=== PATIENT | female | born 1970 | race African-American/Black ===

== ENCOUNTER 2016-05-05 10:42 | Emergency (ER) | payer BC ==
--- NOTE | ~2016-05-05 | EKG ---
PATIENT: HELGA FUENTES UNIT #: [id number] Ventricular Rate: 90 BPM Atrial Rate: 90 BPM P-R Interval: 146 ms QRS Duration: 78 ms Q-T Interval: 360 ms QTC Calculation(Bezet): 440 ms P [place]: 51 degrees Calculated R [place]: 62 degrees Calculated T [place]: 19 degrees Diagnosis Line: Normal sinus rhythm Diagnosis Line: Normal ECG Diagnosis Line: When compared with ECG of 11-MAY-2015 13:39, Diagnosis Line: Nonspecific T wave abnormality now evident in Diagnosis Line: Anterior leads Diagnosis Line: Confirmed by MARCIN ANDRES MD ([id number]) on 05/06/2016 Diagnosis Line: 9:35:15 AM INTERPRETING MD: MCKENNA MELTON
--- NOTE | ~2016-05-05 | CR72 ---
[facility] A Service of [facility] & [facility] RADIOLOGY TEXT RESULTS PATIENT: HELGA FUENTES LOCATION: [facility] : 72 UNIT #: [id number] AGE: [address]: Michael Sher MD SEX: F ORDER DR: [id number] [facility] [address] [place], [place] [address] [id number] MR#: [id number] Acc #: [id number] NAME: HELGA FUENTES : 1970 SEX: F STUDY DATE/TIME: 05/05/2016 10:38 UNIT: [facility] ROOM: STUDY DESCRIPTION: CR Chest Single View Portable Attending Physician: Michael Sher M.D. Ordering Physician: Michael Sher M.D. Primary Care Physician: Mihaela Wu A.P.R.N. MEDICAL IMAGING REPORT This report is preliminary unless electronic signature is present EXAM Portable chest HISTORY Left-sided chest pain beginning yesterday. TECHNIQUE A single view of the chest was obtained and compared with 12/11/2015. FINDINGS Cardiomegaly is unchanged. The lungs are clear and the vascular pattern is normal. No pleural fluid is seen. A tortuous aorta is again noted. IMPRESSION Cardiomegaly with a tortuous aorta. No active disease. No change. Dictated by... Ajit Johns M.D. THIS IS AN ELECTRONICALLY VERIFIED REPORT Ajit Johns M.D. at 05/05/2016 3:44 PM CHIVO/destini TD: 05/05/2016 12:08 JOB #: [id number] MEDICAL IMAGING REPORT Page 1 of 1 COPY
[~2016-05-05 10:42] MED LIST: ADVAIR 2501 DISK W/D PO; ALBUTEROL17 G1 IH; ALBUTEROL17 GM INH; ALLEGRA60 M1 PO; ASPIRIN PO; ASPIRINEC PO; BUSPAR5 MG PO; COMBIVENT INH14.7 GM INH; DOXYCYCLINE150 MG PO; DUONEB 2.5-0.5 M3 ML NEB; FAMOTIDINE PO; FLAGYL PO; FLOVENT HFA12 GM INH; HUMIBID L.1 TAB.SR . PO; IBUPROFEN PO; LEVAQUIN PO; LEXAPRO PO; LORTAB 5/500 TA1 TA1 PO; MEDROL DOSEPAK4 MG PO; NICOTINE PATCH TD; NORVASC PO; PREDNISONE PO; PREDNISONE10 MG PO; PROVENTIL0.83 MG/ML INH; ROBITUSSIN A-C S5 ML PO; ROBITUSSIN ALL118 ML PO; SINGULAIR PO; SYMBICORT INH; ZITHROMAX1 G/PKT PO
[2016-05-05 11:01] LABS: POC - CKMB <1.0 ng/mL (0.0-7.9); POC - TROPONIN <0.05 ng/mL (<=0.05)
[2016-05-05 11:17] LABS: BASOPHIL% 0.5 % (0-2.5); EOSINOPHIL# 0.2 X10e3 (0-0.7); EOSINOPHIL% 2.4 % (0.0-7.0); HEMATOCRIT 42.7 % (35.0-45.0); HEMOGLOBIN 13.5 gm/dL (12.0-16.0); LYMPHOCYTE# 1.5 X10e3 (1.0-3.5); LYMPHOCYTE% 23.2 % (17.0-45.0); MEAN CELL VOLUME 85.2 FL (83-96); MEAN CORPUSCULAR HEMOGLOBIN 26.9 PG (28-34); MEAN CORPUSCULAR HGB CONC 31.6 g/dL (30-36); MEAN PLATELET VOLUME 9.5 FL (6.5-11.5); MONOCYTE# 0.5 X10e3 (0-1.0); MONOCYTE% 8.5 % (3.0-12.0); NEUTROPHIL# 4.2 X10e3 (1.5-7.1); NEUTROPHIL% 65.4 % (40-75); PLATELET COUNT 299 X10e3 (140-420); RED BLOOD COUNT 5.02 X10e (3.90-5.30); RED CELL DISTRIBUTION WIDTH 14.8 % (11.0-15.5); WHITE BLOOD COUNT 6.4 X10e3 (4.0-10.5)
[2016-05-05 11:20] LABS: DIFF IND NO
[2016-05-05 11:56] LABS: BILIRUBIN, DIRECT 0.1 mg/dL (0.0-0.2); BILIRUBIN,INDIRECT 0.4 mg/dL (0.0-0.9); BILIRUBIN,TOTAL 0.5 mg/dL (0.2-2.0); BUN/CREATININE RATIO 18.33; CALCIUM SERUM 9.3 mg/dL (8.4-10.2); CREATININE SERUM 0.6 mg/dL (0.6-1.4); GLOM FILT RATE Estimated 128.5 mL/min (>60); POTASSIUM 3.6 mmol/L (3.5-5.1); PROTEIN TOTAL SERUM 7.1 g/dL (6.0-8.3)
[2016-05-05 12:21] LABS: POC - CKMB <1.0 ng/mL (0.0-7.9); POC - TROPONIN <0.05 ng/mL (<=0.05)
== END 2016-05-05 12:58 | disposition home or self-care (01) ==
LOC: CED 10:42
PROVIDERS: Emergency Medicine
DX: R09.1 Pleurisy (principal); J44.9 Chronic obstructive pulmonary disease, unspecified; F41.9 Anxiety disorder, unspecified; F32.9 Major depressive disorder, single episode, unspecified; Z98.51 Tubal ligation status; Z88.0 Allergy status to penicillin
CPT/HCPCS: 36415; 71010; 80048; 80076; 82553; 84484; 85025; 85379; 93005; 96374; 96375; 99284; J2270; J2405

== ENCOUNTER 2016-06-18 17:55 | Emergency (ER) | payer BC ==
[2016-06-18 18:18] LABS: URINE SOURCE CLEAN CATCH
[2016-06-18 18:25] LABS: URINE APPEARANCE TURBID; URINE BILIRUBIN NEG (NEG); URINE BLOOD NEG (NEG); URINE COLOR YELLOW; URINE GLUCOSE NEG (NEG); URINE KETONE TRACE (NEG); URINE LEUKOCYTE ESTERASE NEG (NEG); URINE NITRATE NEG (NEG); URINE PH 5.5 (5-8); URINE PROTEIN NEG (NEG); URINE SPECIFIC GRAVITY 1.033 (1.003-1.035)
[2016-06-18 18:29] LABS: CULTURE INDICATED? NO
== END 2016-06-18 18:59 | disposition home or self-care (01) ==
LOC: CFTX 17:55
PROVIDERS: Nurse Practitioner Family
DX: S39.012A Strain of muscle, fascia and tendon of lower back, initial encounter (principal); I10 Essential (primary) hypertension; J44.9 Chronic obstructive pulmonary disease, unspecified; Z88.0 Allergy status to penicillin; Z87.891 Personal history of nicotine dependence; X58.XXXA Exposure to other specified factors, initial encounter; Y92.89 Other specified places as the place of occurrence of the external cause
CPT/HCPCS: 81003; 84703; 96372; 99283; J1885

== ENCOUNTER 2016-10-24 10:55 | Emergency (ER) | payer BC ==
[~2016-10-24] VITALS: Ht 152.4 cm; Wt 117.9 kg
--- NOTE | ~2016-10-24 | US98 ---
[facility] A Service of [facility] & [facility] RADIOLOGY TEXT RESULTS PATIENT: HELGA FUENTES LOCATION: [facility] : 72 UNIT #: [id number] AGE: [address]: Denia Levy MD SEX: F ORDER DR: [id number] [facility] [address] [place], [place] [address] [id number] MR#: [id number] Acc #: [id number] NAME: HELGA FUENTES : 1970 SEX: F STUDY DATE/TIME: 10/24/2016 15:51 UNIT: [facility] ROOM: STUDY DESCRIPTION: US Pelvic Non-OB Complete Attending Physician: Denia Levy M.D. Ordering Physician: Denia Levy M.D. Primary Care Physician: Corbin VenegasPJaileneRPrashant MEDICAL IMAGING REPORT This report is preliminary unless electronic signature is present EXAM Pelvis ultrasound HISTORY Left-sided pelvic pain for a week. FINDINGS Transabdominal followed by transvaginal imaging was performed. The uterus is about 15.6 x 6.8 x 6.7 cm. It seems to contain multiple fibroids including one that measures 4.6 cm in diameter. There is another one that is 18.0 mm in diameter. On transvaginal images there are Nabothian cysts visible in the cervix. The left ovary is visualized and it has normal flow. There is a nearly isoechoic 16.0 mm lesion within it. It is well circumscribed. It is probably a complex cyst. The right ovary cannot be seen. The endometrial tissue is normal. IMPRESSION 1. The right ovary is not visualized. 2. There is an isoechoic well circumscribed lesion in the left ovary most likely representing a complex cyst. It measures 16.0 mm in diameter. 3. Otherwise the left ovary is normal. 4. The uterus is enlarged and appears to contain multiple fibroids. Dictated by... Daquan Goldman M.D. THIS IS AN ELECTRONICALLY VERIFIED REPORT Daquan Goldman M.D. at 10/25/2016 1:30 PM BECKIE/maddy TD: 10/25/2016 12:03 [facility] A Service of [facility] RADIOLOGY TEXT RESULTS PATIENT: HELGA FUENTES LOCATION: [facility] #: [id number] : 72 UNIT #: [id number] AGE: [address]: Denia Levy MD SEX: F ORDER DR: JOB #: [id number] MEDICAL IMAGING REPORT Page 1 of 1 COPY
[2016-10-24 12:15] LABS: BASOPHIL# 0.1 X10e3 (0-0.3); BASOPHIL% 0.7 % (0-2.5); EOSINOPHIL# 0.2 X10e3 (0-0.7); EOSINOPHIL% 2.4 % (0.0-7.0); HEMATOCRIT 42.6 % (35.0-45.0); HEMOGLOBIN 14.1 gm/dL (12.0-16.0); LYMPHOCYTE# 1.8 X10e3 (1.0-3.5); LYMPHOCYTE% 21.4 % (17.0-45.0); MEAN CELL VOLUME 82.7 FL (83-96); MEAN CORPUSCULAR HEMOGLOBIN 27.4 PG (28-34); MEAN CORPUSCULAR HGB CONC 33.2 g/dL (30-36); MEAN PLATELET VOLUME 8.3 FL (6.5-11.5); MONOCYTE# 0.5 X10e3 (0-1.0); MONOCYTE% 6.3 % (3.0-12.0); NEUTROPHIL# 5.7 X10e3 (1.5-7.1); NEUTROPHIL% 69.2 % (40-75); PLATELET COUNT 319 X10e3 (140-420); RED BLOOD COUNT 5.16 X10e (3.90-5.30); RED CELL DISTRIBUTION WIDTH 14.9 % (11.0-15.5); WHITE BLOOD COUNT 8.2 X10e3 (4.0-10.5)
[2016-10-24 12:19] LABS: DIFF IND NO
[2016-10-24 12:41] LABS: ALBUMIN SERUM 4.2 g/dL (3.5-5.0); BILIRUBIN, DIRECT 0.1 mg/dL (0.0-0.2); BILIRUBIN,INDIRECT 0.7 mg/dL (0.0-0.9); BILIRUBIN,TOTAL 0.8 mg/dL (0.2-2.0); BUN/CREATININE RATIO 17.14; CALCIUM SERUM 9.1 mg/dL (8.4-10.2); CREATININE SERUM 0.7 mg/dL (0.6-1.4); GLOM FILT RATE Estimated 121.3 mL/min (>60); POTASSIUM 3.7 mmol/L (3.5-5.1); PROTEIN TOTAL SERUM 7.4 g/dL (6.0-8.3)
[2016-10-24 12:41] LABS: URINE SOURCE CLEAN CATCH
[2016-10-24 13:13] LABS: URINE APPEARANCE CLOUDY; URINE BILIRUBIN NEG (NEG); URINE BLOOD NEG (NEG); URINE COLOR YELLOW; URINE GLUCOSE NEG (NEG); URINE KETONE NEG (NEG); URINE LEUKOCYTE ESTERASE TRACE (NEG); URINE NITRATE NEG (NEG); URINE PROTEIN TRACE (NEG); URINE SPECIFIC GRAVITY 1.027 (1.003-1.035)
[2016-10-24 13:16] LABS: CULTURE INDICATED? YES; URBCS1 AUWI 0-2 /[HPF] (0-2); URINE BACTERIA AUWI 1+ (NEGATIVE); URINE SQUAMOUS EPITHELIAL CELL MOD /[HPF]
[2016-10-24 14:18] LABS: URINE SOURCE CATH
[2016-10-24 14:23] LABS: URINE APPEARANCE CLEAR; URINE BILIRUBIN NEG (NEG); URINE BLOOD NEG (NEG); URINE COLOR YELLOW; URINE GLUCOSE NEG (NEG); URINE KETONE TRACE (NEG); URINE LEUKOCYTE ESTERASE TRACE (NEG); URINE NITRATE NEG (NEG); URINE PH 7.5 (5-8); URINE PROTEIN TRACE (NEG); URINE SPECIFIC GRAVITY 1.028 (1.003-1.035)
[2016-10-24 14:26] LABS: URBCS1 AUWI 0-2 /[HPF] (0-2); URINE BACTERIA AUWI NEG (NEGATIVE); URINE SQUAMOUS EPITHELIAL CELL OCC /[HPF]; UWBCS1 AUWI 0-2 (0-5)
[2016-10-24 14:31] LABS: CULTURE INDICATED? NO
[2016-10-27 04:24] LABS: CHLAMYDIA TRACH Not Detected (Not Detected); N GONOR Not Detected (Not Detected)
== END 2016-10-24 17:58 | disposition home or self-care (01) ==
LOC: CED 10:55
PROVIDERS: Emergency Medicine
DX: N83.202 Unspecified ovarian cyst, left side (principal); N76.0 Acute vaginitis; I10 Essential (primary) hypertension; J45.909 Unspecified asthma, uncomplicated; F41.9 Anxiety disorder, unspecified; Z88.0 Allergy status to penicillin
CPT/HCPCS: 76830; 76856; 80048; 80076; 81003; 83690; 84703; 85025; 87086; 87491; 87591; 87651; 87808; 87905; 99284